=== PATIENT | female | born 2005 | race Caucasian/White ===

== ENCOUNTER 2024-01-12 23:20 | Emergency (ER) | payer SELFPAY ==
[2024-01-12 23:25] VITALS: BP 132/81; PULSE 139; RESP 16; TEMP 37.9; O2SAT 98; BMI 32.8
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
[2024-01-13 00:05] VITALS: BP 144/89; PULSE 134; RESP 16; O2SAT 98
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
[2024-01-13] MEDS: acetaminophen 500 mg Tablet 1000 MG PO (00:46)
[2024-01-13 00:48] VITALS: BP 207/111; PULSE 64; O2SAT 95
[2024-01-13 03:23] VITALS: BP 145/82; PULSE 127; O2SAT 100
== END 2024-01-13 03:10 | disposition home or self-care (01) ==
PROVIDERS: Emergency Provider Internal Medicine
DX: S82.141A Displaced bicondylar fracture of right tibia, initial encounter for closed fracture (principal); W13.4XXA Fall from, out of or through window, initial encounter; Y92.039 Unspecified place in apartment as the place of occurrence of the external cause
CPT/HCPCS: 73562; 99283; E0114

== ENCOUNTER 2024-01-13 12:37 | Inpatient (IN) | payer SELFPAY ==
[2024-01-13] VITALS (19 sets, daily range): BP systolic 116–141; BP diastolic 72–92; PULSE 97–150; RESP 19–22; TEMP 36.4–37.1; O2SAT 97–100
[2024-01-13 13:01] LABS: Basophils % 0.3 %; Eosinophils % 0.1 %; Hematocrit 38.5 % (36-47); Lymphocytes # 2.2 10^3/uL (1.5-6.5); Lymphocytes % 15.4 %; Mean Corpuscular HGB Conc 30.9 g/dL (30-55); Mean Corpuscular Hemoglobin 25.3 pg (27-33); Mean Corpuscular Volume 81.7 fl (85-98); Mean Platelet Volume 10.9 fL (7.4-10.4); Monocytes % 6.8 %; Neutrophils # 11.02 10^3/uL (1.8-8.0); Neutrophils % 77.3 %; Nucleated Red Blood Cells % 0 %; Platelet Count 373 10^3/cmm (157-399); Red Blood Count 4.71 10^6/uL (3.85-5.65); Red Cell Distribution Width 13.2 % (12.1-15.1); White Blood Count 14.26 10^3/uL (4.5-13.0)
--- NOTE | 2024-01-13 13:14 | PC.NURSE ---
pt attempting to elope from room 9, still not verbally communicating at this time. pt redirected to room 9 by ED nurses and security via wheelchair.
[2024-01-13 13:18] LABS: Alanine Aminotransferase 18 U/L (0-33); Albumin Level 4.8 g/dL (3.5-5.2); Alkaline Phosphatase 126 U/L (35-105); Blood Urea Nitrogen 16 mg/dL (6-20); Calcium 9.7 mg/dL (8.5-10.5); Carbon Dioxide 17 mmol/L (22-29); Chloride 105 mmol/L (98-107); Globulin 3.5 g/dL (1.3-4.6); Glomerular Filtration Rate 127.5 mL/min (90-130); Glucose 110 mg/dL (65-115); Osmolality Calculated 296 mOsm/kg (285-295); Sodium 142 mmol/L (136-145); Total Bilirubin 0.7 mg/dL (0.15-1.2); Total Protein 8.3 g/dL (6.6-8.7)
--- NOTE | 2024-01-13 13:25 | PC.NURSE ---
At approx 1325 PSA assigned to patient called for security and help, pt attempting to elope from room 9. ER staff attempted verbal de-escalation, pt became combative towards staff, resulting in manual hold restraints by this nurse, security, ED physician, and x2 ED nurses. Attempted verbal de-escalation again, pt still non-compliant and attempting to kick staff and leave. Pt informed of [id number] by Dr. Vincent at [facility] and verbal orders give to place patient on restraint bed. Bilateral wrists and ankle physical restraints on restraint bed applied at 1330, Dr. Vincent at bedside at this time. Pt given 20mg Geodon and 2mg Ativan IM (see MAR). This nurse assessed circulation, skin color, and integrity, all WNL; two finger space between patient wrist and all four restraints. Pt placed on library monitor and b/p obtained (see vitals).
[2024-01-13 13:26] LABS: Acetaminophen < 5.0 ug/mL (10-30); Salicylate < 0.3 mg/dL (3-10)
[2024-01-13 13:27] LABS: Anion Gap 23.7 (5-19); Aspartate Amino Transferase 16 U/L (0-32); Potassium 3.7 mmol/L (3.5-5.1)
[2024-01-13] MEDS: ziprasidone 20 mg/mL SDV (13:33)
[2024-01-13] MEDS: water for injection-sterile 10 ML 2 ML (13:33)
[2024-01-13 13:34] LABS: HCG, Serum Qual Negative (Negative)
[2024-01-13] MEDS: LORazepam 2 mg/mL INJ 10 mL MDV IM (13:55)
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
[2024-01-13 14:01] LABS: Alcohol Level < 10 mg/dL (0-10)
--- NOTE | 2024-01-13 14:06 | PC.NURSE ---
96 hour hold rights read to patient. Patient is incoherent at this time and does not understand what this nurse was reading to her. Copy of rights left with patient belongings.
[2024-01-13] MEDS: sodium chloride 0.9% 1,000 ML 999 ML IV (14:07)
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
--- NOTE | 2024-01-13 17:40 | PC.NURSE ---
PT DENIES SI/HI AND AVH AT THIS TIME. PT RATES DEPRESSION AND ANXIETY 0/10. PT DID STATE SHE HAD BEEN DIAGNOSED WITH DEPRESSION AND ANXIETY BUT HAS NEVER TAKEN ANY MEDICATIONS FOR THEM THAT SHE CAN REMEMBER. SUPPORT VOICED.
[2024-01-13] MEDS: ibuprofen 600 mg Tablet PO (19:05)
--- NOTE | 2024-01-13 19:59 | PC.NURSE ---
Patient has a broken right tibia, She is currently mildly sedated and resting quietly. We are currently awaiting orders to address her discomfort when she awakens.
--- NOTE | 2024-01-13 21:20 | PC.NURSE ---
Patient up to void with assist of 2 staff to bedside commode. Patient tolerated well.
[2024-01-13] MEDS: HYDROcodone-acetaminophen 5-325 mg Tablet 1 TAB PO (23:40)
[2024-01-14] MEDS: hyDROXYzine 25 mg Capsule 50 MG PO ×2 (01:55→12:07)
[2024-01-14] MEDS: nicotine 2 mg Gum BUCCAL ×2 (01:56→19:29)
[2024-01-14 06:00] VITALS: BP 144/88; PULSE 116; RESP 18; TEMP 36.9; O2SAT 92
[2024-01-14] MEDS: HYDROcodone-acetaminophen 5-325 mg Tablet 1 TAB PO ×3 (07:35→19:28)
[2024-01-14] MEDS: OLANZapine 5 mg ODT PO (07:36)
[2024-01-14 08:02] LABS: Add Urine Microscopic? YES; Bilirubin Urine Neg (Negative); Blood Urine 2+ (Negative); Glucose Urine UA Norm (Normal); Ketones Urine 1+ (Negative); Leukocyte Esterase Urine Negative (Negative); Nitrate Urine Negative (Negative); Protein Urine Neg (Negative); RBC Urine 0-4 /hpf (0-2); Urine Appearance Cloudy (CLEAR); Urine Color Yellow (Yellow); Urobilinogen Urine Neg (Negative); pH Urine 6 (5-7)
[2024-01-14 08:03] LABS: Add Urine Culture? No; Bacteria Urine 2+ /hpf; Mucus Urine 1+ /hpf
[2024-01-14 08:17] LABS: Amphetamines Screen Urine Negative (Negative); Barbiturates Screen Urine Negative (Negative); Benzodiazepines Screen Urine Positive (Negative); Cocaine Screen Urine Negative (Negative); Opiate Screen Urine Positive (Negative); PCP Screen Urine Negative (Negative); THC Screen Urine Negative (Negative)
--- NOTE | 2024-01-14 08:36 | PC.NURSE ---
PT IN BED RESTING WITH SITTER AT BEDSIDE. PT RATES RIGHT LOWER LEG PAIN AT A 5-6/10. PT IS OBSERVED TO HAVE DIFFICULTY FINDING WORDS AND AT TIMES WILL USE SIGN LANGUAGE TO ATTEMPT TO COMMUNICATE. PT IS ASKED TO USE HER VOICE. ONE TO ONE OBSERVATION IS IN PLACE DUE TO WRAPPED RIGHT LOWER EXTREMITY. PEDAL PULSES ARE PALPABLE, CAP REFIL TO TOES ARE <3 SECONDS, CAN WIGGLE TOES WITH EASE. PT HAS A FLAT AFFECT AND DEPRESSED MOOD.. RATES ANXIETY 10/10 AND ANXIETY 10/10J. ZYDIS 5 MG WAS GIVEN FOR REPORTED INCREASED ANXIETY. HYDROCODONE 5/325 MG FOR PAIN WAS GIVEN. ALL QUESTIONS WERE ANSWERED AND SUPPORT WAS VOICED.
[2024-01-14 08:53] LABS: Anion Gap 15.5 (5-19); Blood Urea Nitrogen 9 mg/dL (6-20); Calcium 9.2 mg/dL (8.5-10.5); Carbon Dioxide 21 mmol/L (22-29); Chloride 106 mmol/L (98-107); Creatinine Clr Calc Pharmacy 187.0038; Glomerular Filtration Rate 127.5 mL/min (90-130); Glucose 101 mg/dL (65-115); Osmolality Calculated 287 mOsm/kg (285-295); Potassium 3.5 mmol/L (3.5-5.1); Sodium 139 mmol/L (136-145)
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
[2024-01-14] MEDS: acetaminophen 325 mg Tablet 650 MG PO ×2 (12:07→16:28)
--- NOTE | 2024-01-14 12:25 | CTR_ITS ---
PROCEDURE INFORMATION: Exam: CT Right Lower Extremity Without Contrast, Knee Exam date and time: 01/14/2024 1:44 PM Age: 18 years old Clinical indication: Injury or trauma; Fall; Fracture, traumatic; Closed fracture; Tibia; Right; Additional info: Tibial plateau fracture TECHNIQUE: Imaging protocol: CT of the right lower extremity without contrast was performed. Exam focused on the knee. Radiation optimization: All CT scans at this facility use at least one of these dose optimization techniques: automated exposure control; mA and/or kV adjustment per patient size (includes targeted exams where dose is matched to clinical indication); or iterative reconstruction. COMPARISON: CR (LOW EXM, ) 01/13/2024 12:54 AM RADIATION DOSE METRICS: Total DLP (mGy-cm): 327.68 FINDINGS: Bones/joints: Comminuted moderately depressed tibial plateau fracture. This is mildly displaced. The femur, fibula, and patella all appear to be intact. Lipohemarthrosis. Soft tissues: Normal. CT/CT knee RT wo con* [id number] IMPRESSION: Fracture of the lateral tibial plateau.
[2024-01-14] MEDS: enoxaparin 40 mg/0.4 mL Syringe SUBCUT (12:53)
[2024-01-14 14:00] VITALS: BP 133/87; PULSE 118; RESP 20; TEMP 36.6; O2SAT 96
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
[2024-01-14] MEDS: paliperidone ER 6 mg Tablet PO (16:28)
[2024-01-14 20:07] VITALS: BP 127/84; PULSE 100; RESP 17; TEMP 36.7; O2SAT 98
[2024-01-15 06:00] VITALS: BP 129/80; PULSE 94; RESP 16; O2SAT 99
[2024-01-15] MEDS: paliperidone ER 6 mg Tablet PO (08:52)
--- NOTE | 2024-01-15 09:05 | PC.NURSE ---
During morning assessment, patient denied SI, HI, AVH, depression, and anxiety. Patient's responses were delayed. Patient's eye contact was prolonged and awkward. Patient rates pain 7/10. Applied ice pack to patient's right leg, per Dr. Ramírez's request.
--- NOTE | 2024-01-15 09:20 | PM.PN ---
Subjective Subjective: Patient is alert and more communicative today. She has knee immobilizer on pain is controlled. Vitals/I&O/Wt Last Vital Signs Temp 98.1 F 01/14/24 20:07 Pulse 94 01/15/24 06:00 Resp 16 01/15/24 06:00 BP 129/80 01/15/24 06:00 Pulse Ox 99 01/15/24 06:00 O2 Del Method Room Air 01/15/24 06:00 Weight last 48 hrs Weight 210 lb Physical Exam Narrative: Patient has minimal swelling on her leg. She is neurovascular intact. Data 01/13/24 12:56 01/14/24 08:12 A&P Assessment and plan (1) Closed fracture of right tibial plateau: Plan is to do open reduction internal fixation of her tibial plateau tomorrow on 01/16/2024. Will make her n.p.o. after midnight. Hold her Lovenox Qualifiers: Encounter type: initial encounter Qualified Code(s): S82.141A - Displaced bicondylar fracture of right tibia, initial encounter for closed fracture Attestations Medical Necessity Statement*: Pain control Coding Level of Care Code Acute Code for [facility] Fwd Diagnoses Closed fracture of right tibial plateau S82.141A Encounter type: initial encounter
[2024-01-15] MEDS: HYDROcodone-acetaminophen 5-325 mg Tablet 1 TAB PO (10:30)
--- NOTE | 2024-01-15 11:32 | P.NPUPN_ITS ---
Subjective NPU 2 Subjective: Patient presented today reporting that she was feeling okay. She was more communicative today but did continue to have some of the same gestures that were hide on her initial presentation. We did have a conversation about the surgery proposed for tomorrow and that she was aware that they plan on going into her leg surgically 30 a couple of screws. She endorses understanding the necessity of this intervention. Additionally we discussed the Invega and she denied any side effects of that medication thus far. Mental Status Exam 2 MSE Comments: This is an overweight versus obese white female in hospital scrubs with limited grooming and eye contact. No abnormal movements except for mild psychomotor retardation. She had a Paul wrap around her lower right extremity secondary to the noted fracture. More cooperative with exam in mild to moderate distress. Speech and greater spontaneity and more normal rate and volume. Mood described as better, affect remained bizarre and odd. Thought process a little more organized. Thought content: Patient denied suicidal or homicidal ideation by head nods, there were no delusions reported or noted but she did have guardedness and seemingly bizarre thinking, she did appear to be attending to internal stimuli. Attention and concentration appeared more intact and memory appeared more reliable but none were formally tested. She is alert and oriented times person and place. Insight and judgment were limited but improving, impulse control was improving. Vitals/I&O/Wt Last Vital Signs Temp 98.1 F 01/14/24 20:07 Pulse 94 01/15/24 06:00 Resp 16 01/15/24 06:00 BP 129/80 01/15/24 06:00 Pulse Ox 99 01/15/24 06:00 O2 Del Method Room Air 01/15/24 06:00 Weight last 48 hrs Weight 95.254 kg Data NPU 01/13/24 12:56 01/14/24 08:12 A&P Assessment and plan (1) Closed fracture of right tibial plateau: Qualifiers: Encounter type: initial encounter Qualified Code(s): S82.141A - Displaced bicondylar fracture of right tibia, initial encounter for closed fracture (2) Acute psychosis: Plan This is a 18-year-old white female who presented to the emergency department with a lower leg fracture and psychosis. She seemed to give some indication of possible drug use being the nidus of the psychosis. She will continue to require acute inpatient hospitalization. Patient exhibits signs of psychosis, including strange behaviors and gestures. No current suicidal or homicidal ideation reported. No clear indication of auditory or visual hallucinations, but patient seems to be responding to stimuli not apparent to others. Patient also has a fracture of the right tibial plateau. Patient appears confused and not fully coherent. Exhibits signs of thought disorder. 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 1. Encourage individual, group and milieu therapy. 2. Recommend sober living treatment at the highest level of care to which the patient is willing to commit. 3. Continue one-to-one given her Paul wrap given psychosis and need for nonweightbearing. 4.? Started Invega 6 mg p.o. daily. 5.? Will attempt to gather collateral information. 6. Appreciate orthopedic consult and will follow recommendations as indicated. 7. Will have surgery on her right lower leg tomorrow. Will be n.p.o. at midnight. Transfer to surgery for IV placement as well as prophylactic antibiotic. Involuntary Hold Information 2 96 Hour Hold: 96 Hour Involuntary Admission: Yes 96 Hour Hold Ending Date: 01/19/24 96 Hour Hold Ending Time: 12:44 Attestations NPU 2 Medical Necessity Statement*: Inpatient hospitalization is medically necessary and the clinically appropriate decision at this time. We will monitor/initiate medications and make changes as indicated. Her likely length of stay is 4-6 days. Coding Level of Care Code Acute Code for Chg Fwd Diagnoses Closed fracture of right tibial plateau S82.141A Encounter type: initial encounter Acute psychosis F23
[2024-01-15 14:00] VITALS: BP 136/89; PULSE 115; RESP 15; TEMP 36.7; O2SAT 99
[2024-01-15 19:46] VITALS: BP 126/86; PULSE 151; RESP 18; TEMP 36.8; O2SAT 96
[2024-01-15 20:15] VITALS: BP 117/81; PULSE 99; RESP 17; TEMP 36.8; O2SAT 97
[2024-01-15 20:43] VITALS: PULSE 99
--- NOTE | 2024-01-15 22:20 | ECG_ITS ---
[facility] Test Date: 2024-01-15 Pat Name: Juan Small Department: Room: 151 Gender: Female Design Chief: : 2005 Requested By: Sukumar Pena Order Number: [id number] Barnhart MD: Santana Porter M.D. Measurements Intervals [place] Rate: 109 P: 50 MO: 147 QRS: 64 QRSD: 84 T: 19 QT: 341 QTc: 461 Interpretive Statements SINUS TACHYCARDIA No previous ECG available for comparison Electronically Signed On 01-16-2024 23:54:56 CDT by Santana Porter M.D. [id number]
[2024-01-16] VITALS (20 sets, daily range): BP systolic 113–159; BP diastolic 76–111; PULSE 100–147; RESP 10–24; TEMP 36.3–37.1; O2SAT 93–100
--- NOTE | 2024-01-16 | XR_ITS ---
WS: [id number] Exam: XR knee RT 3V* [id number] Date/Time of Exam: 01/16/2024 12:00 AM Reason For Exam: PEDRO PICLinda AP and lateral C-arm images of the RIGHT knee are submitted for evaluation. Images depict plate and s crew fixation involving a fracture of the lateral plateau. Alignment appears to be satisfactory. Post operative changes in the lateral soft tissues.
--- NOTE | 2024-01-16 07:33 | W.PM.OPSUD ---
Surgery/Procedure H&P Update DATE OF PROCEDURE: January 16, 2024 DATE H&P PERFORMED: 01/14/24 H&P UPDATE INFORMATION: I have reviewed H&P completed within last 30 days, I have examined patient prior to procedure and No changes to prior documentation PREOP DIAGNOSIS: Right tibial plateau fracture PLANNED PROCEDURE: Operation Date: 01/16/24 08:30 Proposed Procedures p ORIF Tibial Plateau(Not Applicable) - Maurice Ramírez DO
--- NOTE | 2024-01-16 07:47 | P.ANESASSM_ITS ---
Pre-Anesthetic Assessment Height/Weight: Height 1.78 m Weight 95.254 kg Temp Pulse Resp BP Pulse Ox O2 Del Method 98.7 F 115 H 18 124/85 98 Room Air 01/16/24 07:33 01/16/24 07:33 01/16/24 07:33 01/16/24 07:33 01/16/24 07:33 01/16/24 06:00 Preop Diagnosis: Right tibial plateau fracture Operation Date: 01/16/24 08:30 Proposed Procedures p ORIF Tibial Plateau(Not Applicable) - Maurice Ramírez DO Familial anesthetic complications: None Was Beta Melissa taken within 24 hours: N/A Was Clonidine taken within 24 hours: N/A Last intake: > 8 hrs Social Tobacco (vapes) and No alcohol Exam alert, oriented x 3, clear to auscultation bilaterally and regular rate & rhythm Airway Dentition: full Anesthetic Plan ASA status: 2 Anesthesia: General Risk of > 500 ml blood loss (7ml/kg in children): No Medications/Allergies Home Medications Medication Instructions Recorded Confirmed Last Taken Type naproxen 500 mg tablet 500 mg PO Q12H PRN pain #20 tabs 01/13/24 01/13/24 Unknown Rx Allergies Allergy/AdvReac Type Severity Reaction Status Date / Time No Known Allergies Allergy Verified 01/13/24 16:41 Current Medications Generic Name Dose Route Start Last Admin Trade Name Freq PRN Reason Stop Dose Admin Acetaminophen 650 mg 01/13/24 15:57 01/14/24 16:28 Acetaminophen 325 Mg Tablet PO 650 mg Q4H PRN Administration MILD PAIN Hydrocodone Bitart/Acetaminophen 1 tab 01/13/24 20:09 01/15/24 10:30 Hydrocodone-Acetaminophen 5-325 Mg Tablet PO 1 tab Q6H PRN Administration MODERATE PAIN Enoxaparin Sodium 40 mg 01/14/24 12:30 01/14/24 12:53 Enoxaparin 40 Mg/0.4 Ml Syringe SUBCUT 40 mg Q24H JOSE Administration Hydroxyzine Pamoate 50 mg 01/13/24 15:57 01/14/24 12:07 Hydroxyzine 25 Mg Capsule PO 50 mg Q6H PRN Administration ANXIETY Nicotine Polacrilex 2 mg 01/13/24 15:57 01/14/24 19:29 Nicotine 2 Mg Gum BUCCAL 2 mg Q2H PRN Administration NICOTINE WITHDRAWAL Olanzapine 5 mg 01/13/24 15:57 01/14/24 07:36 Olanzapine 5 Mg Odt PO 5 mg Q4H PRN Administration Agitation/Psychosis Paliperidone 6 mg 01/14/24 15:15 01/15/24 08:52 Paliperidone Er 6 Mg Tablet PO 6 mg DAILY JOSE Administration Data Anesthesia 01/13/24 12:56 01/14/24 08:12 BMP 01/14/24 08:12 Sodium 139 Potassium 3.5 Chloride 106 Carbon Dioxide 21 L BUN 9 Creatinine 0.6 Glucose 101 Calcium 9.2 Urine 01/14/24 Range/Units 07:25 Urine Color Yellow (Yellow) Urine Appearance Cloudy A (CLEAR) Urine pH 6 (5-7) Ur Specific [place] 1.020 (1.005-1.030) Urine Protein Neg (Negative) Urine Glucose (UA) Norm (Normal) Urine Ketones 1+ H (Negative) Urine Nitrate Negative (Negative) Urine Bilirubin Neg (Negative) Ur Leukocyte Esterase Negative (Negative) Urine RBC 0-4 H (0-2) /hpf Urine WBC 10-15 H (0-5) /hpf Cardiac Studies: 2 No Data to Display
[2024-01-16] MEDS: ceFAZolin 1,000 mg SDV 2000 MG IVP (08:00)
--- NOTE | 2024-01-16 09:31 | PM.OP ---
Operative Report Date of procedure: January 16, 2024 Pre-op diagnosis: Right lateral tibial plateau fracture. Post-op diagnosis: same Procedure done: Open reduction internal fixation of intra-articular lateral tibial plateau fracture. Surgeon: Maurice Ramírez DO Estimated blood loss (mL): 50 Procedure: Open reduction internal fixation of intra-articular lateral tibial plateau fracture. Patient brought the operative suite after undergoing anesthesia was placed in supine position. All his impingement well-padded. Patient was prepped and draped normal sterile fashion. Skin incision made along the lateral plateau. The anterior fascia was cut with a knife and then the muscle was dissected off to expose the lateral aspect of the bone. A bone window was formed in the depressed piece was tamped back up into the anatomic alignment. The the lateral plate was then placed to screws were placed nonlocking fashion. In order to compress the fracture together. And then 4 locking screws were placed across as a raft to hold the piece in position. Another screw was placed into the shaft of the plate. AP lateral fluoroscopy ensured that the fracture and hardware in good position. Next calcium phosphate was injected. Some get into the proper place but overall a lot of it did not go into the crevices where I wanted it however the bone and hard and so at this point we felt like the screws are going to be strong enough to support this. Wounds were irrigated and wound was closed in layered fashion with 0 Vicryl 2-0 Vicryl and rashad. Sterile dressings were applied patient was transferred to the PACU in stable condition.
[2024-01-16] MEDS: fentaNYL 50 mcg/mL INJ 2mL IVP (09:44)
[2024-01-16] MEDS: meperidine 50 mg/mL INJ 12.5 MG IVP (09:53)
--- NOTE | 2024-01-16 10:15 | ANE.PACU2 ---
Inpatient post-anesthesia follow up: Airway intact: Yes Vital signs: Temperature 98.3 F Pulse Rate 96 Respiratory Rate 16 Blood Pressure 126/83 Pulse Oximetry 98 Oxygen Delivery Me thod Room Air Oxygen Flow Rate 0 Fraction of Inspir ed Oxygen Hydration adequate: Yes Nausea and vomiting: No Pain level: 1 Mental status: Baseline
[2024-01-16] MEDS: acetaminophen 325 mg Tablet 650 MG PO (11:27)
[2024-01-16] MEDS: sodium chloride 0.9% 1,000 ML 80 ML IV ×2 (11:28→23:19)
[2024-01-16] MEDS: paliperidone ER 6 mg Tablet PO (11:35)
--- NOTE | 2024-01-16 11:41 | P.NPUPN_ITS ---
Subjective NPU 2 Subjective: Patient presented today reporting that she was doing better. He was continuing to be more communicative each time she is seen. She could not give a good explanation for the idiosyncrasies that she displays but did share some belief that somehow this publications writer was able to understand her strange gestures. Her surgery went off without a hitch. Report from surgeon was that he accomplished his goals for the procedure. We discussed with her the fact that she was on a 96-hour hold and that she would be returning to the neuropsychiatric unit when medically cleared by Dr. Ramírez. We discussed getting a hospitalist consult for her elevated blood pressure and heart rate/pulse. She denied any side effects to the medication. Mental Status Exam 2 MSE Comments: This is an overweight versus obese white female in hospital scrubs with limited grooming and eye contact. No abnormal movements except for mild psychomotor retardation. She had a Paul wrap around her lower right extremity secondary to the noted fracture. More cooperative with exam in mild to moderate distress. Speech and greater spontaneity and more normal rate and volume. Mood described as better, affect remained bizarre and odd. Thought process a little more organized. Thought content: Patient denied suicidal or homicidal ideation by head nods, there were no delusions reported or noted but she did have guardedness and seemingly bizarre thinking, she did appear to be attending to internal stimuli. Attention and concentration appeared more intact and memory appeared more reliable but none were formally tested. She is alert and oriented times person and place. Insight and judgment were limited but improving, impulse control was improving. Vitals/I&O/Wt Last Vital Signs Temp 98.2 F 01/16/24 10:25 Pulse 122 H 01/16/24 10:55 Resp 14 01/16/24 10:55 BP 132/91 01/16/24 10:55 Pulse Ox 98 01/16/24 10:55 O2 Del Method Room Air 01/16/24 10:55 O2 Flow Rate 0 01/16/24 09:28 01/15/24 01/16/24 01/16/24 22:59 06:59 14:59 Intake Total 1050 / 1050 Output Total 20 / 20 Balance 1030 / 1030 Weight last 48 hrs Weight 95.254 kg Data NPU 01/16/24 17:00 01/16/24 17:00 A&P Assessment and plan (1) Closed fracture of right tibial plateau: Qualifiers: Encounter type: initial encounter Qualified Code(s): S82.141A - Displaced bicondylar fracture of right tibia, initial encounter for closed fracture (2) Acute psychosis: Plan This is a 18-year-old white female who presented to the emergency department with a lower leg fracture and psychosis. She seemed to give some indication of possible drug use being the nidus of the psychosis. She will continue to require acute inpatient hospitalization. Patient exhibits signs of psychosis, including strange behaviors and gestures. No current suicidal or homicidal ideation reported. No clear indication of auditory or visual hallucinations, but patient seems to be responding to stimuli not apparent to others. Patient also has a fracture of the right tibial plateau. Patient appears confused and not fully coherent. Exhibits signs of thought disorder. 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 1. Encourage individual, group and milieu therapy. 2. Recommend sober living treatment at the highest level of care to which the patient is willing to commit. 3. Continue one-to-one given her being on MedSurg. 4.? Started Invega 6 mg p.o. daily. 5.? Will attempt to gather collateral information. 6. Appreciate orthopedic consult and will follow recommendations as indicated. 7. Surgery proceeded without complication. Will await medical clearance from surgeon for return to neuropsychiatric unit. 8. Obtain hospitalist consult for elevated blood pressure and pulse. Involuntary Hold Information 2 96 Hour Hold: 96 Hour Involuntary Admission: Yes 96 Hour Hold Ending Date: 01/19/24 96 Hour Hold Ending Time: 12:44 Attestations NPU 2 Medical Necessity Statement*: Inpatient hospitalization is medically necessary and the clinically appropriate decision at this time. We will monitor/initiate medications and make changes as indicated. Her likely length of stay is 4-6 days. Coding Level of Care Code Acute Code for Chg Fwd Diagnoses Closed fracture of right tibial plateau S82.141A Encounter type: initial encounter Acute psychosis F23
[2024-01-16] MEDS: enoxaparin 40 mg/0.4 mL Syringe SUBCUT (12:31)
[2024-01-16] MEDS: nicotine 2 mg Gum BUCCAL ×2 (14:37→19:20)
--- NOTE | 2024-01-16 15:34 | PC.NURSE ---
PT on 96 HH
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
[2024-01-16] MEDS: metoprolol tartrate 25 mg Tablet PO (16:02)
[2024-01-16] MEDS: iohexol 350 mg/mL 500 mL Btl (per mL) IV (16:43)
[2024-01-16 17:20] LABS: Basophils % 0.1 %; Hematocrit 32.4 % (36-47); Lymphocytes # 0.4 10^3/uL (1.5-6.5); Lymphocytes % 4.1 %; Mean Corpuscular HGB Conc 31.5 g/dL (30-55); Mean Corpuscular Hemoglobin 25.6 pg (27-33); Mean Corpuscular Volume 81.2 fl (85-98); Mean Platelet Volume 11.2 fL (7.4-10.4); Monocytes # 0.3 10^3/uL (0.2-0.9); Neutrophils # 9.88 10^3/uL (1.8-8.0); Neutrophils % 92.5 %; Nucleated Red Blood Cells % 0 %; Platelet Count 359 10^3/cmm (157-399); Red Blood Count 3.99 10^6/uL (3.85-5.65); White Blood Count 10.68 10^3/uL (4.5-13.0)
[2024-01-16] MEDS: ceFAZolin 2,000 MG in sodium chloride 0.9% (plus) 50 ML 100 MG IV ×2 (17:32→23:20)
[2024-01-16 17:35] LABS: Alanine Aminotransferase 18 U/L (0-33); Albumin Level 3.9 g/dL (3.5-5.2); Alkaline Phosphatase 96 U/L (35-105); Anion Gap 15.8 (5-19); Aspartate Amino Transferase 11 U/L (0-32); Blood Urea Nitrogen 5 mg/dL (6-20); Calcium 9.2 mg/dL (8.5-10.5); Carbon Dioxide 22 mmol/L (22-29); Chloride 102 mmol/L (98-107); Creatinine Clr Calc Pharmacy 224.4045; Globulin 3.2 g/dL (1.3-4.6); Glomerular Filtration Rate 157.3 mL/min (90-130); Glucose 131 mg/dL (65-115); Osmolality Calculated 281 mOsm/kg (285-295); Potassium 3.8 mmol/L (3.5-5.1); Sodium 136 mmol/L (136-145); Total Bilirubin 0.2 mg/dL (0.15-1.2); Total Protein 7.1 g/dL (6.6-8.7)
[2024-01-16 17:53] LABS: HIV 1 & 2 Antibody Non-Reactive (Non-Reactiv); HIV 1 & 2 Antigen Non-Reactive (Non-Reactiv)
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
[2024-01-16 18:00] LABS: Hepatitis A Antibody IgM Non-Reactive (Nonreactive); Hepatitis B Core AB, Total Non-Reactive (Nonreactive); Hepatitis B Surface AB 8.1 (11.5-1000); Hepatitis B Surface Antigen Non-Reactive (Nonreactive); Hepatitis C Virus Antibody Non-Reactive (Nonreactive)
[2024-01-16] MEDS: ketorolac 30 mg/mL INJ IVP (18:18)
[2024-01-16 19:19] LABS: Troponin T (5th) Once < 6 ng/L (0-10)
[2024-01-16] MEDS: HYDROcodone-acetaminophen 5-325 mg Tablet PO (19:20)
[2024-01-16] MEDS: trazodone 50 mg Tablet PO (19:20)
[2024-01-16 19:23] LABS: Chol HDL Ratio 3.32 mg/dL (0.0-4.40); Cholesterol 113 mg/dL (0-200); HDL Cholesterol 34 mg/dL (60-100); LDL Cholesterol Calculated 69 mg/dL (50-129); LDL HDL Ratio 2.03 RATIO (0.00-3.22); Triglycerides 49 mg/dL (0-150)
[2024-01-17 00:44] VITALS: BP 127/77; PULSE 101; RESP 20; TEMP 36.4; O2SAT 98
[2024-01-17] MEDS: HYDROcodone-acetaminophen 5-325 mg Tablet PO ×5 (03:04→23:08)
[2024-01-17] MEDS: metoprolol tartrate 25 mg Tablet PO (03:04)
[2024-01-17 04:34] VITALS: BP 134/87; PULSE 98; RESP 19; TEMP 36.7; O2SAT 96
--- NOTE | 2024-01-17 06:49 | P.PN_ITS ---
Subjective 2 Subjective: Patient is complaining of pain in her leg but overall is tolerating it. Vitals/I&O/Wt Last Vital Signs Temp 98.1 F 01/17/24 04:34 Pulse 98 01/17/24 04:34 Resp 19 H 01/17/24 04:34 BP 134/87 01/17/24 04:34 Pulse Ox 96 01/17/24 04:34 O2 Del Method Room Air 01/16/24 13:25 O2 Flow Rate 0 01/16/24 09:28 01/16/24 01/16/24 01/17/24 14:59 22:59 06:59 Intake Total 1290 / 1290 410 / 1700 1798 / 3498 Output Total 700 / 720 Balance 1270 / 1270 -290 / 980 1798 / 2778 Weight last 48 hrs Weight 222 lb 3.2 oz Weight 210 lb Physical Exam 2 Narrative: Dressing is clean dry and intact Data 01/16/24 17:00 01/16/24 17:00 Micro: Microbiology 01/16/24 17:05 Blood Culture - Preliminary Blood SPECIMEN COLLECTED 01/16/24 17:00 Blood Culture - Preliminary Blood SPECIMEN COLLECTED A&P Assessment and plan (1) Closed fracture of right tibial plateau: Postop day #1 right tibial plateau ORIF Okay to discharge from orthopedic standpoint. Follow-up in Ortho clinic in 2 weeks DVT prophylaxis with Lovenox okay to change to Eliquis if does not tolerate subq Qualifiers: Encounter type: initial encounter Qualified Code(s): S82.141A - Displaced bicondylar fracture of right tibia, initial encounter for closed fracture Attestations 2 Medical Necessity Statement*: Per primary service Coding Level of Care Code Acute Code for Chg Fwd Diagnoses Closed fracture of right tibial plateau S82.141A Encounter type: initial encounter
[2024-01-17 07:52] LABS: Rapid Plasma Reagin Syphilis Nonreactive (Nonreactive)
--- NOTE | 2024-01-17 08:53 | USR_ITS ---
PROCEDURE INFORMATION: Exam: US Soft Tissue Head and Neck, Thyroid Exam date and time: 01/17/2024 2:57 PM Age: 18 years old Clinical indication: Abnormal findings; Abnormal thyroid lab test; Additional info: Palpitations, low tsh TECHNIQUE: Imaging protocol: Real-time ultrasound scan of the neck with image documentation. Exam focused on the thyroid. COMPARISON: CT angio chest w abd pel w con 01/16/2024 4:38 PM FINDINGS: Right thyroid lobe: No nodules. Left thyroid lobe: No nodules. Isthmus: No nodules. US/US thyroid [id number] IMPRESSION: Unremarkable thyroid.
[2024-01-17 08:54] VITALS: BP 124/82; PULSE 99; RESP 16; TEMP 36.8; O2SAT 96
[2024-01-17] MEDS: paliperidone ER 6 mg Tablet PO (09:01)
[2024-01-17] MEDS: docusate sodium 100 mg Capsule PO ×2 (09:01→17:46)
[2024-01-17] MEDS: ceFAZolin 2,000 MG in sodium chloride 0.9% (plus) 50 ML 100 MG IV (09:01)
[2024-01-17] MEDS: nicotine 2 mg Gum BUCCAL (09:06)
[2024-01-17 09:54] LABS: Free T4 Free Thyroxine 1.55 ng/dL (0.82-1.77)
[2024-01-17 11:49] VITALS: BP 126/83; PULSE 96; RESP 16; O2SAT 98
--- NOTE | 2024-01-17 12:30 | P.PN_ITS ---
Subjective 2 Subjective: Seen this morning. TSH 0.20. Hemoglobin 10.20. Patient states that she does have heat intolerance and has been having anxiety issues for the last 2 years. She has been having palpitations for the last 2 years as well. She has never had issues with thyroid in the past. She does state that she sometimes she will have regurgitation of food. Vitals/I&O/Wt Last Vital Signs Temp 98.3 F 01/17/24 08:54 Pulse 96 01/17/24 11:49 Resp 16 01/17/24 11:49 BP 126/83 01/17/24 11:49 Pulse Ox 98 01/17/24 11:49 O2 Del Method Room Air 01/17/24 11:49 O2 Flow Rate 0 01/16/24 09:28 01/16/24 01/17/24 01/17/24 22:59 06:59 14:59 Intake Total 410 / 1700 1798 / 3498 1259 / 1259 Output Total 700 / 720 Balance -290 / 980 1798 / 2778 1259 / 1259 Weight last 48 hrs Weight 100.788 kg Weight 95.254 kg Physical Exam 2 Narrative: General: No acute distress, AO x3 HEENT: PERRLA, pupils bilaterally equal and reactive, pallors not present Chest: Normal vesicular breath sounds, no added sounds, equal good air entry bilaterally CVS: S1-S2 regular, no murmurs, no tachycardia, no gallops, no rubs Abdomen: Soft, nontender, no organomegaly, bowel sounds present Neuro: No focal deficits, Data 01/16/24 17:00 01/16/24 17:00 Micro: Microbiology 01/16/24 17:05 Blood Culture - Preliminary Blood SPECIMEN COLLECTED 01/16/24 17:00 Blood Culture - Preliminary Blood SPECIMEN COLLECTED A&P Assessment and plan (1) Sinus tachycardia: (2) Hypertension: (3) Acute psychosis: (4) Closed fracture of right tibial plateau: Qualifiers: Encounter type: initial encounter Qualified Code(s): S82.141A - Displaced bicondylar fracture of right tibia, initial encounter for closed fracture Plan 18-year-old lady admitted to the hospital for evaluation of acute psychosis, currently under management by inpatient psychiatry team. Reports a history of trauma on January 12 after jumping from the second story of her building. Denies any head injury. No obvious injuries noted over the head or face. She has been noted to have sinus tachycardia and hypertension during the admission course. EKG reviewed, shows sinus tachycardia, intermittently on telemetry heart rate is noted to be between 1 37-1 60, still in sinus rhythm. Patient endorses palpitations at that time but denies any payam chest pain. Start metoprolol 25 mg p.o. twice daily for symptomatic management. Check TSH Check baseline troponin. Low suspicion for ACS. Check CTA of the chest abdomen and pelvis. This will allow skeletal survey after her recent fall. Will evaluate for any potential chest injuries, possibility of aneurysms, dissection given history of hypertension during teenage years. CT of the abdomen and pelvis to additionally evaluate for the kidneys, potential renal artery stenosis, and/or hydronephrosis. Low-grade temperature noted on January 12, has not recurred since then during this admission. Infectious evaluation including blood cultures given history of IV drug use. Denies any past history of known endocarditis. Check UA, urine culture, STD screening with urine GC, chlamydia, RPR serum, hepatitis B and C screen, HIV screening. Patient denies any alcohol or drug use currently. ?accuracy of history?? possible Substance withdrawal? Further orders to be dependent on results of above testing. Today's plan 01/17/2024 ? TSH 0.20. Check free T4, check thyroid ultrasound. ? Patient will need endocrinology follow-up at discharge ? Troponin less than 6. ? CTA chest abdomen pelvis shows possible mild pyelonephritis. Correlate with symptoms. Patient denies any symptoms at this time. Repeat UA is pending at this time. However UA on admission did show 2+ blood, 10-15 WBCs, 2+ bacteria. Neutrophil count elevated. Initial WBC 14.66 on admission however could have been reactive secondary to tibial fracture. Patient does not have any urinary complaints at this time. ? We will repeat UA at this time. CT chest on pelvis shows There is minimal patchy hypoenhancement in the kidneys raising concern for pyelonephritis. Delayed images are recommended for further evaluation. -Low-grade temperature noted on January 12 as well but has not recurred since admission. ? STD screening pending. RPR negative. HIV negative. Hep B nonreactive, hep C on nonreactive. ? I will stop metoprolol 25 twice daily at this time. ? Start propranolol 20 twice daily. ? Stop IV fluids today ? Will need endocrinology follow-up at discharge. Full code Attestations 2 Medical Necessity Statement*: Tachycardic. Needs continued workup. Diagnoses Sinus tachycardia R00.0 Hypertension I10 Acute psychosis F23 Closed fracture of right tibial plateau S82.141A Encounter type: initial encounter
--- NOTE | 2024-01-17 13:24 | P.NPUPN_ITS ---
Subjective NPU 2 Subjective: Patient presented today reporting that she was doing a little better. She reports that her grandmother contacted her and there was a chance she might be flying out to assist parent getting things organized. She reports that she might be returning to [place] with her at least for a little while. She reports that there has been more pain than it has been challenging today. She denied any side effects to the medication. Mental Status Exam 2 MSE Comments: This is an overweight versus obese white female in hospital scrubs with limited grooming and eye contact. Notable tattooing on exposed skin. No abnormal movements except for mild psychomotor retardation. She had a Paul wrap around her lower right extremity secondary to the noted fracture. More cooperative with exam in mild distress. Speech with greater spontaneity and slightly decreased rate and volume. Mood described as better, affect appeared congruent and subdued. Thought process more organized. Thought content: Patient denied suicidal or homicidal ideation, there were no delusions reported or noted with less guardedness and no clear signs of odd thinking, she did not appear to be attending to internal stimuli. Attention and concentration appeared more intact and memory appeared more reliable but none were formally tested. She is alert and oriented times 3. Insight and judgment were improving, impulse control was improving. Vitals/I&O/Wt Last Vital Signs Temp 98.3 F 01/17/24 08:54 Pulse 96 01/17/24 11:49 Resp 16 01/17/24 11:49 BP 126/83 01/17/24 11:49 Pulse Ox 98 01/17/24 11:49 O2 Del Method Room Air 01/17/24 11:49 O2 Flow Rate 0 01/16/24 09:28 01/16/24 01/17/24 01/17/24 22:59 06:59 14:59 Intake Total 410 / 1700 1798 / 3498 1499 / 1499 Output Total 700 / 720 Balance -290 / 980 1798 / 2778 1499 / 1499 Weight last 48 hrs Weight 100.788 kg Weight 95.254 kg Data NPU 01/16/24 17:00 01/16/24 17:00 Micro: Microbiology 01/16/24 17:05 Blood Culture - Preliminary Blood SPECIMEN COLLECTED 01/16/24 17:00 Blood Culture - Preliminary Blood SPECIMEN COLLECTED Microbiology 01/16/24 17:05 Blood Blood Culture - Preliminary SPECIMEN COLLECTED 01/16/24 17:00 Blood Blood Culture - Preliminary SPECIMEN COLLECTED A&P Assessment and plan (1) Closed fracture of right tibial plateau: Qualifiers: Encounter type: initial encounter Qualified Code(s): S82.141A - Displaced bicondylar fracture of right tibia, initial encounter for closed fracture (2) Acute psychosis: Plan This is a 18-year-old white female who presented to the emergency department with a lower leg fracture and psychosis. She seemed to give some indication of possible drug use being the nidus of the psychosis. She will continue to require acute inpatient hospitalization. Patient exhibits signs of psychosis, including strange behaviors and gestures. No current suicidal or homicidal ideation reported. No clear indication of auditory or visual hallucinations, but patient seems to be responding to stimuli not apparent to others. Patient also has a fracture of the right tibial plateau. Patient appears confused and not fully coherent. Exhibits signs of thought disorder. 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 1. Encourage individual, group and milieu therapy. 2. Recommend sober living treatment at the highest level of care to which the patient is willing to commit. 3. Continue one-to-one given her being on MedSurg. 4.? Started Invega 6 mg p.o. daily. 5.? Will attempt to gather collateral information. 6. Appreciate orthopedic consult and will follow recommendations as indicated. 7. Surgery proceeded without complication. Will await medical clearance from surgeon for return to neuropsychiatric unit. 8. Appreciate hospitalist consult and will follow recommendations as indicated. Involuntary Hold Information 2 96 Hour Hold: 96 Hour Involuntary Admission: Yes 96 Hour Hold Ending Date: 01/19/24 96 Hour Hold Ending Time: 12:44 Attestations NPU 2 Medical Necessity Statement*: Inpatient hospitalization is medically necessary and the clinically appropriate decision at this time. We will monitor/initiate medications and make changes as indicated. Her likely length of stay is 2-4 days. Coding Level of Care Code Acute Code for Chg Fwd Diagnoses Closed fracture of right tibial plateau S82.141A Encounter type: initial encounter Acute psychosis F23
[2024-01-17 14:53] LABS: Add Urine Microscopic? YES; Amorphous Sediment Urine 2+ /hpf; Bacteria Urine 1+ /hpf; Bilirubin Urine Neg (Negative); Blood Urine Neg (Negative); Glucose Urine UA Norm (Normal); Ketones Urine Negative (Negative); Leukocyte Esterase Urine Negative (Negative); Nitrate Urine Negative (Negative); Protein Urine Neg (Negative); Specific Gravity, Urine 1.005 (1.005-1.030); Squamous Epithelial Cell Urine 0-4 /hpf (0-5); Urine Appearance Hazy (CLEAR); Urine Color Straw (Yellow); Urobilinogen Urine Norm (Negative); WBC Urine 0-4 /hpf (0-5); pH Urine 7 (5-7)
[2024-01-17 14:54] LABS: Add Urine Culture? No
[2024-01-17] MEDS: enoxaparin 40 mg/0.4 mL Syringe SUBCUT (15:37)
[2024-01-17 15:47] LABS: T3 Free 2.6 PG/ML (2.0-4.4)
[2024-01-17] MEDS: propranolol 20 mg Tablet PO (17:46)
[2024-01-17 19:28] VITALS: BP 121/81; PULSE 96; RESP 17; TEMP 36.8; O2SAT 98
[2024-01-17] MEDS: trazodone 50 mg Tablet PO (23:08)
[2024-01-18] VITALS (7 sets, daily range): BP systolic 115–138; BP diastolic 74–89; PULSE 82–125; RESP 15–20; TEMP 36.3–36.7; O2SAT 95–98
[2024-01-18] MEDS: HYDROcodone-acetaminophen 5-325 mg Tablet PO ×4 (05:05→23:32)
[2024-01-18 05:20] LABS: Basophils % 0.3 %; Eosinophils # 0.2 10^3/uL (0.0-0.8); Eosinophils % 1.9 %; Hematocrit 32.3 % (36-47); Lymphocytes # 3.6 10^3/uL (1.5-6.5); Lymphocytes % 27.9 %; Mean Corpuscular HGB Conc 30.3 g/dL (30-55); Mean Corpuscular Hemoglobin 25.3 pg (27-33); Mean Corpuscular Volume 83.2 fl (85-98); Mean Platelet Volume 11.2 fL (7.4-10.4); Monocytes # 0.8 10^3/uL (0.2-0.9); Monocytes % 5.8 %; Neutrophils # 8.21 10^3/uL (1.8-8.0); Neutrophils % 63.7 %; Nucleated Red Blood Cells % 0 %; Platelet Count 335 10^3/cmm (157-399); Red Blood Count 3.88 10^6/uL (3.85-5.65); Red Cell Distribution Width 13.5 % (12.1-15.1); White Blood Count 12.88 10^3/uL (4.5-13.0)
[2024-01-18] MEDS: propranolol 20 mg Tablet PO ×2 (08:22→17:25)
[2024-01-18] MEDS: paliperidone ER 6 mg Tablet PO (08:22)
[2024-01-18] MEDS: docusate sodium 100 mg Capsule PO ×2 (08:22→17:25)
[2024-01-18] MEDS: methIMAzole 5 MG Tablet 2.5 MG PO (09:10)
[2024-01-18] MEDS: apixaban 5 mg Tablet 2.5 MG PO ×2 (09:10→20:46)
--- NOTE | 2024-01-18 12:32 | PC.NURSE ---
Report called to Frida in NPU.
[2024-01-18 12:45] LABS: Chlamydia Trachomatis RNA TMA NOT DETECTED (NOT DETECTED); Neisseria Gonorrhoeae RNA, TMA NOT DETECTED (NOT DETECTED)
--- NOTE | 2024-01-18 12:49 | PC.NURSE ---
Pt escorted to NPU per transfer orders, via wheelchair. All belongings with pt. Pt escorted by this nurse and security.
--- NOTE | 2024-01-18 12:53 | P.PN_ITS ---
Subjective 2 Subjective: Seen this morning. Patient's labs consistent with subclinical hyperthyroidism. She says she feels a little bit better with propranolol being added. Discussed with endocrinology over the phone as an outpatient. Vitals/I&O/Wt Last Vital Signs Temp 97.6 F 01/18/24 10:59 Pulse 109 H 01/18/24 10:59 Resp 18 01/18/24 10:59 BP 131/78 01/18/24 10:59 Pulse Ox 95 01/18/24 10:59 O2 Del Method Room Air 01/18/24 10:59 O2 Flow Rate 0 01/16/24 09:28 01/17/24 01/18/24 01/18/24 22:59 06:59 14:59 Intake Total 240 / 9 / 1978 540 / 540 Balance 240 / 1738 540 / 540 Weight last 48 hrs Weight 98.747 kg Weight 100.788 kg Physical Exam 2 Narrative: General: No acute distress, AO x3 HEENT: PERRLA, pupils bilaterally equal and reactive, pallors not present Chest: Normal vesicular breath sounds, no added sounds, equal good air entry bilaterally CVS: S1-S2 regular, no murmurs, no tachycardia, no gallops, no rubs Abdomen: Soft, nontender, no organomegaly, bowel sounds present Neuro: No focal deficits, Data 01/18/24 04:25 01/16/24 17:00 Micro: Microbiology 01/16/24 17:05 Blood Culture - Preliminary Blood NEGATIVE TO DATE 01/16/24 17:00 Blood Culture - Preliminary Blood NEGATIVE TO DATE A&P Assessment and plan (1) Sinus tachycardia: (2) Hypertension: (3) Acute psychosis: (4) Closed fracture of right tibial plateau: Qualifiers: Encounter type: initial encounter Qualified Code(s): S82.141A - Displaced bicondylar fracture of right tibia, initial encounter for closed fracture Plan 18-year-old lady admitted to the hospital for evaluation of acute psychosis, currently under management by inpatient psychiatry team. Reports a history of trauma on January 12 after jumping from the second story of her building. Denies any head injury. No obvious injuries noted over the head or face. She has been noted to have sinus tachycardia and hypertension during the admission course. EKG reviewed, shows sinus tachycardia, intermittently on telemetry heart rate is noted to be between 1 37-1 60, still in sinus rhythm. Patient endorses palpitations at that time but denies any payam chest pain. Start metoprolol 25 mg p.o. twice daily for symptomatic management. Check TSH Check baseline troponin. Low suspicion for ACS. Check CTA of the chest abdomen and pelvis. This will allow skeletal survey after her recent fall. Will evaluate for any potential chest injuries, possibility of aneurysms, dissection given history of hypertension during teenage years. CT of the abdomen and pelvis to additionally evaluate for the kidneys, potential renal artery stenosis, and/or hydronephrosis. Low-grade temperature noted on January 12, has not recurred since then during this admission. Infectious evaluation including blood cultures given history of IV drug use. Denies any past history of known endocarditis. Check UA, urine culture, STD screening with urine GC, chlamydia, RPR serum, hepatitis B and C screen, HIV screening. Patient denies any alcohol or drug use currently. ?accuracy of history?? possible Substance withdrawal? Further orders to be dependent on results of above testing. Today's plan 01/17/2024 ? TSH 0.20. Check free T4, check thyroid ultrasound. ? Patient will need endocrinology follow-up at discharge ? Troponin less than 6. ? CTA chest abdomen pelvis shows possible mild pyelonephritis. Correlate with symptoms. Patient denies any symptoms at this time. Repeat UA is pending at this time. However UA on admission did show 2+ blood, 10-15 WBCs, 2+ bacteria. Neutrophil count elevated. Initial WBC 14.66 on admission however could have been reactive secondary to tibial fracture. Patient does not have any urinary complaints at this time. ? We will repeat UA at this time. CT chest on pelvis shows There is minimal patchy hypoenhancement in the kidneys raising concern for pyelonephritis. Delayed images are recommended for further evaluation. -Low-grade temperature noted on January 12 as well but has not recurred since admission. ? STD screening pending. RPR negative. HIV negative. Hep B nonreactive, hep C on nonreactive. ? I will stop metoprolol 25 twice daily at this time. ? Start propranolol 20 twice daily. ? Stop IV fluids today ? Will need endocrinology follow-up at discharge. Today's plan 01/18/2024 ? Labs consistent with left clinical hypothyroidism. ? Start methimazole 2.5 daily ? Continue propranolol 20 twice daily. -Ultrasound thyroid unremarkable ? Thyroglobulin antibody, TRAb, TSI, TPO are all pending at this time. ? Follow-up with endocrinology at discharge. Discussed with Dr. Tyler over the phone. Patient okay to go to psych floor. I will continue to follow Full code Attestations 2 Medical Necessity Statement*: defer to primary team Coding Level of Care Code 13929 Diagnoses Sinus tachycardia R00.0 Hypertension I10 Acute psychosis F23 Closed fracture of right tibial plateau S82.141A Encounter type: initial encounter
--- NOTE | 2024-01-18 13:11 | PC.NURSE ---
RECEIVED PT TRANSFER FROM MEDICAL UNIT. PT CURRENTLY DENIES SI/HI/AH/VH. PT CURRENTLY DENIES ANXIETY AND DEPRESSION. PT RLE IS WRAPPED IN AN SARAH WRAP. PT WAS DRESSED INTO GREEN SCRUB TOP AND BLACK STREET SHORTS DUE TO RLE EXTREMITY SURGERY. OTHER THAN RLE PT SKIN IS WNL. PT CURRENT NEEDS ARE MET PT IS CURRENTLY IN THE DAYROOM WITH SITTER.
--- NOTE | 2024-01-18 15:38 | P.NPUPN_ITS ---
Subjective NPU 2 Subjective: Patient presented today reporting that she is doing better. Her spontaneous communication increasing and current journaling able to write a more complex thoughts about her past and hopes for her future. She reports her pain is being well-managed at this time. She is working with the hospitalist on her subacute thyroid condition. We discussed her 96-hour hold ending working with her and her family to assist in her goal of working with her grandmother to get back to [place]. Mental Status Exam 2 MSE Comments: This is an overweight versus obese white female in hospital scrubs with limited grooming and eye contact. Notable tattooing on exposed skin. No abnormal movements except for mild psychomotor retardation. She had a Paul wrap around her lower right extremity secondary to the noted fracture. More cooperative with exam in mild distress. Speech with greater spontaneity and slightly decreased rate and volume. Mood described as better, affect appeared congruent and less subdued. Thought process more organized. Thought content: Patient denied suicidal or homicidal ideation, there were no delusions reported or noted with less guardedness and no clear signs of odd thinking, she did not appear to be attending to internal stimuli. Attention and concentration appeared more intact and memory appeared more reliable but none were formally tested. She is alert and oriented times 3. Insight and judgment were improving, impulse control was improving. Vitals/I&O/Wt Last Vital Signs Temp 97.6 F 01/18/24 14:22 Pulse 125 H 01/18/24 14:22 Resp 20 H 01/18/24 14:22 BP 115/77 01/18/24 14:22 Pulse Ox 98 01/18/24 14:22 O2 Del Method Room Air 01/18/24 14:22 O2 Flow Rate 0 01/16/24 09:28 01/18/24 01/18/24 01/18/24 06:59 14:59 22:59 Intake Total 1978 540 / 540 Balance 1978 540 / 540 Weight last 48 hrs Weight 98.747 kg Weight 100.788 kg Data NPU 01/18/24 04:25 01/16/24 17:00 Micro: Microbiology 01/16/24 17:05 Blood Culture - Preliminary Blood NEGATIVE TO DATE 01/16/24 17:00 Blood Culture - Preliminary Blood NEGATIVE TO DATE Microbiology 01/16/24 17:05 Blood Blood Culture - Preliminary NEGATIVE TO DATE 01/16/24 17:00 Blood Blood Culture - Preliminary NEGATIVE TO DATE A&P Assessment and plan (1) Closed fracture of right tibial plateau: Qualifiers: Encounter type: initial encounter Qualified Code(s): S82.141A - Displaced bicondylar fracture of right tibia, initial encounter for closed fracture (2) Acute psychosis: Plan This is a 18-year-old white female who presented to the emergency department with a lower leg fracture and psychosis. She seemed to give some indication of possible drug use being the nidus of the psychosis. She will continue to require acute inpatient hospitalization. Patient exhibits signs of psychosis, including strange behaviors and gestures. No current suicidal or homicidal ideation reported. No clear indication of auditory or visual hallucinations, but patient seems to be responding to stimuli not apparent to others. Patient also has a fracture of the right tibial plateau. Patient appears confused and not fully coherent. Exhibits signs of thought disorder. 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 1. Encourage individual, group and milieu therapy. 2. Recommend sober living treatment at the highest level of care to which the patient is willing to commit. 3. Continue one-to-one for safety given Paul wrap and recent surgery. 4.? Started Invega 6 mg p.o. daily. 5.? Will attempt to gather collateral information. 6. Appreciate orthopedic consult and will follow recommendations as indicated. 7. Surgery proceeded without complication. Will await medical clearance from surgeon for return to neuropsychiatric unit. Appreciate hospitalist consult and will follow recommendations as indicated. 8. Appreciate hospitalist consult and follow recommendations as indicated. Involuntary Hold Information 2 96 Hour Hold: 96 Hour Involuntary Admission: Yes 96 Hour Hold Ending Date: 01/19/24 96 Hour Hold Ending Time: 12:44 Attestations NPU 2 Medical Necessity Statement*: Inpatient hospitalization is medically necessary and the clinically appropriate decision at this time. We will monitor/initiate medications and make changes as indicated. Her likely length of stay is 1-3 days. Coding Level of Care Code Acute Code for Chg Fwd Diagnoses Closed fracture of right tibial plateau S82.141A Encounter type: initial encounter Acute psychosis F23
[2024-01-18] MEDS: trazodone 50 mg Tablet PO (20:45)
[2024-01-18] MEDS: ibuprofen 800 mg tablet PO (20:46)
[2024-01-19 00:07] VITALS: BP 120/76; PULSE 99; RESP 14; O2SAT 97
[2024-01-19 04:14] VITALS: BP 130/79; PULSE 101; RESP 16; O2SAT 96
[2024-01-19 07:52] VITALS: BP 127/88; PULSE 107; RESP 16; O2SAT 97
[2024-01-19] MEDS: propranolol 20 mg Tablet PO (08:18)
[2024-01-19] MEDS: apixaban 5 mg Tablet 2.5 MG PO (08:18)
[2024-01-19] MEDS: paliperidone ER 6 mg Tablet PO (08:18)
[2024-01-19] MEDS: hyDROXYzine 25 mg Capsule 50 MG PO (08:18)
[2024-01-19] MEDS: docusate sodium 100 mg Capsule PO (08:18)
[2024-01-19 08:22] LABS: Basophils % 0.3 %; Eosinophils # 0.2 10^3/uL (0.0-0.8); Eosinophils % 1.9 %; Hematocrit 33.4 % (36-47); Lymphocytes # 2.4 10^3/uL (1.5-6.5); Lymphocytes % 23.5 %; Mean Corpuscular HGB Conc 31.1 g/dL (30-55); Mean Corpuscular Hemoglobin 25.2 pg (27-33); Mean Corpuscular Volume 81.1 fl (85-98); Mean Platelet Volume 10.9 fL (7.4-10.4); Monocytes # 0.5 10^3/uL (0.2-0.9); Monocytes % 4.6 %; Neutrophils # 7.11 10^3/uL (1.8-8.0); Neutrophils % 69.5 %; Nucleated Red Blood Cells % 0 %; Platelet Count 363 10^3/cmm (157-399); Red Blood Count 4.12 10^6/uL (3.85-5.65); Red Cell Distribution Width 13.2 % (12.1-15.1); White Blood Count 10.22 10^3/uL (4.5-13.0)
[2024-01-19] MEDS: methIMAzole 5 MG Tablet 2.5 MG PO (10:06)
[2024-01-19 11:00] LABS: T3 Total 88 ng/dL (86-192)
[2024-01-19 11:40] VITALS: BP 122/79; PULSE 90; RESP 17; O2SAT 98
[2024-01-19] MEDS: acetaminophen 325 mg Tablet 650 MG PO (12:18)
--- NOTE | 2024-01-19 12:18 | PC.NURSE ---
Patient requesting pain medication. This nurse pulled hydrocodone. Patient decided she would rather have Tylenol because the hydrocodone makes her feel drowsy. Wasting hydro with another nurse
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
[2024-01-19 14:13] VITALS: BP 122/79; PULSE 90; RESP 17; O2SAT 98
[2024-01-19 15:00] VITALS: BP 114/75; PULSE 93; RESP 16; O2SAT 98
[2024-01-20 08:50] LABS: Thyroglobulin AB <1 IU/mL (< or = 1); Thyroid Peroxidase Antobodies 33 IU/mL (<9)
[2024-01-26 19:49] LABS: Thyroid Stimulating Immunoglob <89 % baseline (<140)
[2024-01-28 23:15] LABS: Thyroglobulin Level <0.4 ng/mL
[2024-01-29 15:14] LABS: T3 Reverse LC/MS/MS 24 ng/dL (8-25)
== END 2024-01-19 16:34 | disposition home or self-care (01) | DRG 494 ==
LOC: ER 14:01 → NP 14:54 → MEDSURG 01-16 10:03 → NP 01-18 12:48
PROVIDERS: Internal Medicine; Orthopaedic Surgery; Student in an Organized Health Care Education/Training Program; Admitting Provider Psychiatry & Neurology Psychiatry; Emergency Provider Family Medicine; Visit Provider Psychiatry & Neurology Psychiatry
PROC: 0QSG04Z Reposition Right Tibia with Internal Fixation Device, Open Approach (ICD-10-PCS; principal; 2024-01-16 08:00)
DX: S82.141A Displaced bicondylar fracture of right tibia, initial encounter for closed fracture (principal); W19.XXXA Unspecified fall, initial encounter; F29 Unspecified psychosis not due to a substance or known physiological condition; F15.90 Other stimulant use, unspecified, uncomplicated; R00.0 Tachycardia, unspecified; E03.8 Other specified hypothyroidism
CPT/HCPCS: 36415; 71275; 73562; 73700; 74177; 76000; 76536; 80048; 80053; 80061; 80306; 80307; 81001; 84432; 84439; 84443; 84445; 84480; 84481; 84482; 84484; 84703; 85025; 86376; 86592; 86705; 86706; 86709; 86800; 86803; 87040; 87340; 87491; 87591; 87806; 93005; 96372; 97110; 97116; 97150; 97161; 97164; 97165; 97530; 97760; 99285; C1713; J0330; J0690; J1100; J1170; J1650; J1885; J2060; J2175; J2405; J2704; J3010; J3486; J3490; J7030; Q9967

== ENCOUNTER → 2024-02-03 10:38 | Outpatient (BNVA) | payer SELFPAY | PROVIDERS: Visit Provider Orthopaedic Surgery | DX: S82.141A Displaced bicondylar fracture of right tibia, initial encounter for closed fracture (principal); X58.XXXA Exposure to other specified factors, initial encounter | CPT/HCPCS: 73562 ==